=== PATIENT | female | born 1975 | race Caucasian/White ===

== ENCOUNTER → 2023-11-17 14:41 | Outpatient (REF) | payer OTHER, SELFPAY | LOC: HWRAD 14:41 | PROVIDERS: ATTENDING PHYSICIAN Obstetrics & Gynecology Gynecology; FAMILY PHYSICIAN Family Medicine | DX: Z30.432 Encounter for removal of intrauterine contraceptive device (principal); T83.31XA Breakdown (mechanical) of intrauterine contraceptive device, initial encounter | CPT/HCPCS: 76830; 76856 ==

== ENCOUNTER → 2023-12-08 19:46 | Outpatient (REF) | payer OTHER, SELFPAY | LOC: MRI 3T 19:46 | PROVIDERS: ATTENDING PHYSICIAN Obstetrics & Gynecology Gynecology; FAMILY PHYSICIAN Family Medicine | DX: N94.89 Other specified conditions associated with female genital organs and menstrual cycle (principal); D21.9 Benign neoplasm of connective and other soft tissue, unspecified | CPT/HCPCS: 72197; A9575 ==

== ENCOUNTER → 2024-01-05 11:32 | Outpatient (REF) | payer OTHER, SELFPAY | LOC: WDC 11:32 | PROVIDERS: ATTENDING PHYSICIAN Obstetrics & Gynecology Gynecology; FAMILY PHYSICIAN Family Medicine | DX: Z12.31 Encounter for screening mammogram for malignant neoplasm of breast (principal) | CPT/HCPCS: 77063; 77067 ==

== ENCOUNTER → 2024-12-23 13:44 | Outpatient (REF) | payer OTHER, SELFPAY | LOC: RAD 13:44 | PROVIDERS: ATTENDING PHYSICIAN Obstetrics & Gynecology Gynecology; FAMILY PHYSICIAN Student in an Organized Health Care Education/Training Program | DX: N83.201 Unspecified ovarian cyst, right side (principal) | CPT/HCPCS: 76830; 76856 ==

== ENCOUNTER → 2025-01-09 08:16 | Outpatient (REF) | payer OTHER, SELFPAY | LOC: WDC 08:16 | PROVIDERS: ATTENDING PHYSICIAN Obstetrics & Gynecology Gynecology; FAMILY PHYSICIAN Student in an Organized Health Care Education/Training Program | DX: Z12.31 Encounter for screening mammogram for malignant neoplasm of breast (principal) | CPT/HCPCS: 77063; 77067 ==